=== PATIENT | male | born 1960 | race Caucasian/White ===

== ENCOUNTER 2017-03-15 12:38 | Emergency (ER) | payer OTHER ==
[2017-03-15 12:44] VITALS: BP 128/87; PULSE 82; TEMP 98.1; BMI 29.1
--- NOTE | 2017-03-15 13:34 | PDOC ---
History of Present Illness - General Chief Complaint: Pain Stated Complaint: KNEE PAIN Time Seen by Provider: 03/15/17 13:12 History Source: Patient Exam Limitations: No Limitations - History of Present Illness Initial Comments: 03/15/17 13:28 While at work 6 weeks ago, patient states he stumbled and fell backwards twisting his left knee. States did not report the incident of the time and was hoping for resolved however patient has continued tenderness along the medial aspect of his left knee and was concerned about fracture. Patient denies numbness or tingling, no other injury. Has taken no medication for Relief of pain, and no treatments. 03/15/17 13:46 Occurred: reports: other Severity: reports: mild Pain Location: reports: lower extremity (left knee ) Modifying Factors: improves with: None Loss of Consciousness: no loss of consciousness Associated Symptoms (Fall): denies symptoms Past History - Travel Traveled outside of the country in the last 30 days: No Close contact w/someone who was outside of country & ill: No - Past Medical History Allergies/Adverse Reactions: Allergies Allergy/AdvReac Type Severity Reaction Status Date / Time shellfish derived Allergy Swelling Verified 03/15/17 12:44 Home Medications: Ambulatory Orders Lisinopril/Hydrochlorothiazide [Lisinopril-Hctz 10-12.5 mg Tab] 1 each PO DAILY 03/15/17 Naproxen [Naprosyn -] 500 mg PO BID #14 tablet 03/15/17 HTN: Yes - Psycho/Social/Smoking Cessation Hx Anxiety: No Suicidal Ideation: No Smoking History: Current some day smoker Have you smoked in the past 12 months: Yes Number of Cigarettes Smoked Daily: 4 Information on smoking cessation initiated: No Hx Alcohol Use: Yes (SOCIAL) Drug/Substance Use Hx: No Substance Use Type: None Trauma Specific PMHX - Complaint Specific PMHX Back Injury: No Neck Injury: No Review of Systems - Review of Systems Able to Perform ROS?: Yes Is the patient limited [place] Citizen proficient: Yes Constitutional: Yes: See HPI. No: Symptoms Reported, Malaise HEENTM: Yes: See HPI. No: Symptoms Reported Respiratory: No: Symptoms reported Musculoskeletal: Yes: Symptoms Reported, See HPI, Joint Pain (to MCL). No: Joint Swelling All Other Systems: Reviewed and Negative *Physical Exam - Vital Signs Last Vital Signs Temp Pulse Resp BP Pulse Ox 98.1 F 82 20 128/87 98 03/15/17 12:41 03/15/17 12:41 03/15/17 12:41 03/15/17 12:41 03/15/17 12:41 - Physical Exam General Appearance: Yes: Nourished, Appropriately Dressed, Apparent Distress HEENT: positive: LILI, Normal ENT Inspection, TMs Normal Musculoskeletal: positive: Normal Inspection, Other (tenderness reproduced along the left superior aspect of medial collateral LIGAMENT. Knee is stable, negative anterior drawer test, no lateral collateral ligament, no posterior fossa tenderness , is ambulatory without unsteadiness or limp. 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 We'll treat with NSAIDs, immobilizer, and follow up with OrthO *DC/Admit/Observation/Transfer Diagnosis at time of Disposition: Knee MCL sprain Qualifiers: Encounter type: initial encounter Laterality: left Qualified Code(s): S83.412A - Sprain of medial collateral ligament of left knee, initial encounter - Discharge Dispostion Disposition: HOME Condition at time of disposition: Stable Admit: No - Referrals Referrals: Basliia Nava MD [Primary Care Provider] - Claus Preston MD [Staff Physician] - - Patient Instructions Printed Discharge Instructions: DI for Knee Sprain Additional Instructions: Rest, ice to area on and off for 15 minutes 4-6 times a day Avoid heavy lifting or exercise until pain and swelling is resolved or until further directed Keep area highly elevated to reduce swelling Use splints/Santino wrap as directed Followup with orthopedist in one to 2 days if not improving, if significantly improved may wait one week for followup with orthopedist May use Naprosyn 500mg every8 hours as needed for pain - Post Discharge Activity Work/School Note: Back to Work
== END 2017-03-15 13:49 | disposition home or self-care (01) ==
LOC: JERFT 12:38
PROC: 2W3RX1Z Immobilization of Left Lower Leg using Splint (ICD-10-PCS; principal; 2017-03-15)
DX: S83.412A Sprain of medial collateral ligament of left knee, initial encounter (principal); W19.XXXA Unspecified fall, initial encounter; Y93.89 Activity, other specified; Y92.9 Unspecified place or not applicable; F17.210 Nicotine dependence, cigarettes, uncomplicated
CPT/HCPCS: 99281-25

== ENCOUNTER 2017-04-23 08:37 | Emergency (ER) | payer OTHER ==
[2017-04-23 08:57] VITALS: TEMP 98.1; BMI 29.2
--- NOTE | 2017-04-23 09:12 | PDOC ---
History of Present Illness - General Chief Complaint: Chest Pain Stated Complaint: CHEST PAIN Time Seen by Provider: 04/23/17 09:11 Past History - Past Medical History Allergies/Adverse Reactions: Allergies Allergy/AdvReac Type Severity Reaction Status Date / Time shellfish derived Allergy Swelling Verified 04/23/17 08:54 Home Medications: Ambulatory Orders Lisinopril/Hydrochlorothiazide [Lisinopril-Hctz 10-12.5 mg Tab] 1 each PO DAILY 03/15/17 Naproxen [Naprosyn -] 500 mg PO BID #14 tablet 03/15/17 HTN: Yes - Psycho/Social/Smoking Cessation Hx Anxiety: No Suicidal Ideation: No Smoking History: Current some day smoker Have you smoked in the past 12 months: Yes Number of Cigarettes Smoked Daily: 4 Information on smoking cessation initiated: No Hx Alcohol Use: Yes (SOCIAL) Drug/Substance Use Hx: No Substance Use Type: None *Physical Exam - Vital Signs Last Vital Signs Temp Pulse Resp BP Pulse Ox 98.1 F 75 19 128/80 97 04/23/17 08:54 04/23/17 08:54 04/23/17 08:54 04/23/17 08:54 04/23/17 08:54 *DC/Admit/Observation/Transfer - Attestations Physician Attestion: 04/23/17 09:12 I, Dr. Rolly Romo, attest that this document has been prepared under my direction and personally reviewed by me in its entirety. I further attest, that it accurately reflects all work, treatment, procedures and medical decision -making performed by me.
--- NOTE | 2017-04-23 09:18 | PDOC ---
Attending Attestation - Resident Resident Name: Jessica Madera - ED Attending Attestation I have performed the following: I have examined & evaluated the patient, The case was reviewed & discussed with the resident, I agree w/resident's findings & plan, Exceptions are as noted - HPI HPI: 04/23/17 09:17 57 yo L sided anterior chest pain just this morning, intermittently, gone now...... 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 - Physicial Exam PE: 04/23/17 09:18 VSS, NAD, PAIN FREE - Medical Decision Making 04/23/17 09:[address] Madera's assessment and plan
[2017-04-23 09:38] LABS: BASOPHIL 0.8 % (0-2.0); MCH 28.8 pg (25.7-33.7); MCHC 31.8 g/dl (32.0-35.9); MEAN CELL VOLUME 90.5 fl (80-96); MEAN PLT VOLUME 9.3 fl (7.5-11.1); NEUTROPHILS 66.1 % (42.8-82.8); PLATELET COUNT 228 K/MM3 (134-434); RDW 15.9 % (11.9-15.9); WHITE BLOOD COUNT 8.6 K/mm3 (4.0-10.0)
--- NOTE | 2017-04-23 09:56 | PDOC ---
History of Present Illness - General Chief Complaint: Chest Pain Stated Complaint: CHEST PAIN Time Seen by Provider: 04/23/17 09:11 History Source: Patient Exam Limitations: No Limitations - History of Present Illness Initial Comments: 57yo M with PMH of HTN presents c/o left sternal chest pain since he woke up this morning. He has never had these symptoms before. Pt reports he played basketball and volleyball with co-workers on Monday and went to [employer] yesterday, which is more physical activity than is normal for him. Pain is localized and pt points with one finger to upper left sterum where pain is. Pain is described as intermittent, non-radiating, rated 3/10 at its peak, though currently resolved. Pt took 2 Flory Aspirins and some Tums which temporarily relieved the pain. Pt denies fever, SOB, diaphoresis, palpitations , tachycardia. 04/23/17 09:48 Timing/Duration: 1-3 hours Severity: mild Past History - Past Medical History Allergies/Adverse Reactions: Allergies Allergy/AdvReac Type Severity Reaction Status Date / Time shellfish derived Allergy Swelling Verified 04/23/17 08:54 Home Medications: Ambulatory Orders Lisinopril/Hydrochlorothiazide [Lisinopril-Hctz 10-12.5 mg Tab] 1 each PO DAILY 03/15/17 HTN: Yes - Surgical History Orthopedic Surgery: Yes (Left shoulder surgery 3 yrs ago) - Family Disease History Family Disease History: Respiratory: Sister (asthma) - Psycho/Social/Smoking Cessation Hx Anxiety: No Suicidal Ideation: No Smoking History: Current some day smoker Have you smoked in the past 12 months: Yes Number of Cigarettes Smoked Daily: 0 (3 cigarettes per week) Information on smoking cessation initiated: No Hx Alcohol Use: Yes (SOCIAL) Drug/Substance Use Hx: No Substance Use Type: None Review of Systems - Review of Systems Able to Perform ROS?: Yes Is the patient limited [place] proficient: No Constitutional: No: Chills, Diaphoresis, Fever HEENTM: No: Eye Pain, Recent change in vision, Ear Pain, Nose Pain, Nose Congestion, Throat Pain Respiratory: No: Cough, Shortness of Breath, Stridor, Wheezing, Hemoptysis Cardiac (ROS): Yes: Chest Pain. No: Irregular Heart Rate, Lightheadedness, Palpitations, Chest Tightness ABD/GI: No: Abdominal Distended, Constipated, Diarrhea, Nausea, Rectal Bleeding , Vomiting : No: Dysuria, Hematuria Musculoskeletal: No: Joint Pain, Muscle Pain Integumentary: No: Bruising, Dryness, Lesions Neurological: No: Headache, Numbness, Weakness *Physical Exam - Vital Signs Last Vital Signs Temp Pulse Resp BP Pulse Ox 98.1 F 75 19 128/80 97 04/23/17 08:54 04/23/17 08:54 04/23/17 08:54 04/23/17 08:54 04/23/17 08:54 - Physical Exam General Appearance: Yes: Nourished, Appropriately Dressed. No: Apparent Distress HEENT: positive: EOMI, Normal Voice, Other (moist mucous membranes). negative: Pale Conjunctivae, Scleral Icterus (R), Scleral Icterus (L) Neck: positive: Trachea midline, Supple Respiratory/Chest: positive: Lungs Clear, Normal Breath Sounds. negative: Respiratory Distress, Accessory Muscle Use Cardiovascular: positive: Regular Rhythm, Regular Rate, S1, S2. negative: JVD, Murmur Gastrointestinal/Abdominal: positive: Soft. negative: Distended, Guarding, Rebound, Tenderness Extremity: negative: Swelling, Calf Tenderness, Erythema Integumentary: positive: Dry, Warm Neurologic: positive: Fully Oriented, Alert, Normal Mood/Affect Heart Score/ECG Review #1 General ECG Interpretation: Sinus Rhythm, Normal Rate, Normal Intervals, No acute ischemic changes ED Treatment Course - LABORATORY CBC & Chemistry Diagram: 04/23/17 09:30 04/23/17 09:16 - ADDITIONAL ORDERS Additional order review: 04/23/17 09:30 RBC 4.51 MCV 90.5 MCHC 31.8 L RDW 15.9 MPV 9.3 Neutrophils % 66.1 Lymphocytes % 21.0 Monocytes % 6.1 Eosinophils % 6.0 H Basophils % 0.8 Medical Decision Making - Medical Decision Making 57yo M with PMH of HTN presenting c/o left upper sternal chest pain. Pt reports increased physical activity over the last couple days (basketball, volleyball, gym). Ddx includes muscloskeletal pain vs ACS. CBC with diff, CMP troponin -> wnl Cr kinase -> 1276 -> pt given water to drink, repeat ordered EKG -> reveals NSR CXR -> no acute pathology 04/23/17 10:06 04/23/17 13:51 repeat Cr kinase 1143 -> trending down. Pt can go home. Will be advised to drink lots of water and avoid working out for a few days. *DC/Admit/Observation/Transfer Diagnosis at time of Disposition: Chest pain in adult - Discharge Dispostion Disposition: HOME Condition at time of disposition: Improved Admit: No - Referrals Referrals: Basilia Nava MD [Primary Care Provider] - - Patient Instructions Printed Discharge Instructions: DI for Atypical Chest Pain Additional Instructions: Please come back to hospital if symptoms of chest pain persist, or if symptoms worsen (sweating, fast heart rate, increased chest pain). Please follow up with Primary Care Doctor.
[2017-04-23 10:00] LABS: ANION GAP 8 (8-16); BILIRUBIN,TOTAL 0.9 mg/dL (0.2-1.0); CALCIUM 9.7 mg/dL (8.5-10.1); CO2 29 mmol/L (21-32); GLUCOSE,RANDOM 93 mg/dL (74-106); SGOT/AST 27 U/L (15-37); SGPT/ALT 23 U/L (12-78); TOT PROT 7.6 g/dl (6.4-8.2)
[2017-04-23 10:12] LABS: ALK PHOS 74 U/L (45-117); TROPONIN I < 0.02 ng/ml (0.00-0.05)
[2017-04-23 10:22] LABS: CPK 1276 IU/L (39-308)
[2017-04-23 13:05] VITALS: BP 137/78; PULSE 72
--- NOTE | 2017-04-23 13:07 | EKG ---
Test Reason : Blood Pressure : / mmHG Vent. Rate : 071 BPM Atrial Rate : 071 BPM P-R Int : 132 ms QRS Dur : 086 ms QT Int : 398 ms P-R-T Axes : 062 032 045 degrees QTc Int : 432 ms NORMAL SINUS RHYTHM NORMAL ECG NO PREVIOUS ECGS AVAILABLE REPEAT EKG IF CLINICALLY INDICATED Confirmed by ROSALES SORIANO MD ([id number]) on 04/23/2017 1:07:09 PM Referred By: Confirmed By:ROSALES SORIANO MD
[2017-04-23 13:46] LABS: CPK 1143 IU/L (39-308); TROPONIN I < 0.02 ng/ml (0.00-0.05)
== END 2017-04-23 14:28 | disposition home or self-care (01) ==
LOC: JER 08:37
DX: R07.89 Other chest pain (principal); I10 Essential (primary) hypertension; Z72.0 Tobacco use
CPT/HCPCS: 36415; 71010-TC; 80053; 82553; 84484; 85025; 93005; 93010; 99283-25

== ENCOUNTER 2018-12-28 17:23 | Emergency (ER) | payer OTHER ==
[2018-12-28] MEDS ORDERED: IBUPROFEN 400 MG TABLET (FP) PO ONE ×2 (17:27→17:50)
--- NOTE | 2018-12-28 17:27 | PDOC ---
Rapid Medical Evaluation Medical Evaluation: Allergies Allergy/AdvReac Type Severity Reaction Status Date / Time shellfish derived Allergy Swelling Verified 04/23/17 08:54 I have performed a brief in-person evaluation of this patient. The patient presents with a chief complaint of: Metal sign fell onto R hand yesterday Pertinent physical exam findings: +swelling of R hand, mainly along head of 1st and 2nd metacarpals I have ordered the following: R hand xray The patient will proceed to the ED for further evaluation. 12/28/18 17:24
[2018-12-28 17:28] VITALS: BP 160/98; PULSE 87; TEMP 97.9; BMI 30.9
--- NOTE | 2018-12-28 18:07 | PDOC ---
History of Present Illness - General Chief Complaint: Injury Stated Complaint: SWOLLEN HAND Time Seen by Provider: 12/28/18 17:24 History Source: Patient Exam Limitations: No Limitations Past History - Travel Traveled outside of the country in the last 30 days: No Close contact w/someone who was outside of country & ill: No - Past Medical History Allergies/Adverse Reactions: Allergies Allergy/AdvReac Type Severity Reaction Status Date / Time shellfish derived Allergy Swelling Verified 12/28/18 17:27 Home Medications: Ambulatory Orders Lisinopril/Hydrochlorothiazide [Lisinopril-Hctz 10-12.5 mg Tab] 1 each PO DAILY 03/15/17 Ibuprofen 600 mg PO Q6H #30 tablet 12/28/18 COPD: No HTN: Yes - Surgical History Orthopedic Surgery: Yes (Left shoulder surgery 3 yrs ago) - Family Disease History Family Disease History: Respiratory: Sister (asthma) - Suicide/Smoking/Psychosocial Hx Smoking History: Never smoked Have you smoked in the past 12 months: Yes Number of Cigarettes Smoked Daily: 0 (3 cigarettes per week) Information on smoking cessation initiated: No Hx Alcohol Use: No Drug/Substance Use Hx: No Substance Use Type: None Review of Systems - Review of Systems Able to Perform ROS?: Yes Comments:: 12/28/18 18:02 CONSTITUTIONAL: Absent: fever, chills, diaphoresis, generalized weakness, malaise, loss of appetite MUSCULOSKELETAL: Present: R hand pain Absent: myalgia, arthralgia, joint swelling SKIN: Absent: rash, itching, pallor NEUROLOGIC: Absent: headache, focal weakness or paresthesias, dizziness, unsteady gait, seizure, mental status changes, bladder or bowel incontinence PSYCHIATRIC: Absent: anxiety, depression, suicidal or homicidal ideation, hallucinations. Is the patient limited [place] proficient: No *Physical Exam - Vital Signs Last Vital Signs Temp Pulse Resp BP Pulse Ox 97.9 F 87 19 160/98 98 12/28/18 17:25 12/28/18 17:25 12/28/18 17:25 12/28/18 17:25 12/28/18 17:25 - Physical Exam Comments: 12/28/18 18:04 GENERAL: The patient is awake, alert, and fully oriented, in no acute distress. HEAD: Normal with no signs of trauma. EYES: Pupils equal, round and reactive to light, extraocular movements intact, sclera anicteric, conjunctiva clear. EXTREMITIES: TTP over the R second and third metacarpals. Pt able to make a fist. Strength 5/5 in b/l hands. PMS intact. Minimal swelling noted over the area, Normal range of motion, no edema. NEUROLOGICAL: Normal speech, normal gait PSYCH: Normal mood, normal affect. SKIN: Warm, Dry, normal turgor, no rashes or lesions noted. ED Treatment Course - Medications Given in the ED: ED Medications Discontinued Medications Generic Name Dose Route Start Last Admin Trade Name Jacque PRN Reason Stop Dose Admin Ibuprofen 800 mg 12/28/18 17:27 12/28/18 17:57 Motrin - PO 12/28/18 17:28 800 mg ONCE ONE Administration Medical Decision Making - Medical Decision Making 12/28/18 18:05 The patient is a 58-year-old male with past medical history of hypertension, who presents to the ER today with right hand pain. 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 He states he took Motrin and went home. States he noticed the hand was swollen so he came in for evaluation. He states that it hurts to make a fist. Denies fevers, chills, numbness and tingling and weakness to the affected extremity. Patient is right- hand dominant. A/P: Hand pain On exam patient with tenderness to palpation over the right second and third metacarpals with mild associated swelling X-ray obtained from E is negative for fractures on wet read. Patient with multiple degenerative changes noted at the MCP joint. Old fifth metacarpal fracture Will treat with Santino wrap, Motrin and ice Discharge home with hand follow-up I discussed the physical exam findings, ancillary test results and final diagnoses with the patient. I answered all of the patient's questions. The patient was satisfied with the care received and felt comfortable with the discharge plan and treatment plan. The Patient agrees to follow up with the primary care physician/specialist within 24-72 hours. Return precautions were given. *DC/Admit/Observation/Transfer Diagnosis at time of Disposition: Hand pain, right - Discharge Dispostion Disposition: HOME Condition at time of disposition: Stable Decision to Admit order: No - Referrals Referrals: Basilia Nava MD [Primary Care Provider] - Kar Madrid MD [Staff Physician] - - Patient Instructions Printed Discharge Instructions: DI for Hand Pain Additional Instructions: You were evaluated for your hand pain today Your x-ray does not show any broken bones You may take Motrin 600mg every 6 hours as needed for pain and swelling Wear the SANTINO wrap on the hand for comfort Keep the hand elevated at rest Apply ice to the area for 20 minute intervals Follow up with the hand doctor in 48-72 hours if your symptoms are not improving Return to the ER for any new or worsening symptoms - Post Discharge Activity Forms/Work/School Notes: Back to Work
== END 2018-12-28 18:28 | disposition home or self-care (01) ==
LOC: JERFT 17:23
DX: M79.641 Pain in right hand (principal); W20.8XXA Other cause of strike by thrown, projected or falling object, initial encounter; Y93.89 Activity, other specified; Y92.69 Other specified industrial and construction area as the place of occurrence of the external cause; Y99.0 Civilian activity done for income or pay
CPT/HCPCS: 73130-TC-RT-FY; 99281-25

== ENCOUNTER 2020-02-23 13:22 | Emergency (ER) | payer OTHER ==
[2020-02-23 13:41] VITALS: BMI 28.3
--- NOTE | 2020-02-23 13:43 | PDOC ---
Rapid Medical Evaluation Chief Complaint: Injury Time Seen by Provider: 02/23/20 13:38 Medical Evaluation: Allergies Allergy/AdvReac Type Severity Reaction Status Date / Time shellfish derived Allergy Swelling Verified 12/28/18 17:27 02/23/20 13:39 I have performed a brief in-person evaluation of this patient. The patient presents with a chief complaint of: redness in right conjunctiva s/p police accidentally broke down his door and tackled him. pt report police was looking for someone else but went to the wrong apartment and he was sleeping when they broke down his door and tackled him. pt was found to have left 9th rib fx on x-ray from [facility] and florecein stain was done in urgent care which was normal but advised to come to ED for eval by limited radiology technician. pt does no recall trauma to eye and does not know how he got the redness in right eye Pertinent physical exam findings:. right subconjunctiva hemorrhage. EOMI. RICKIE B/L I have ordered the following: deferred The patient will proceed to the ED for further evaluation. Discharge Disposition - Diagnosis Subconjunctival hemorrhage of right eye - Discharge Dispostion Condition at time of disposition: Stable - Referrals - Patient Instructions - Post Discharge Activity
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
[2020-02-23 15:50] VITALS: BP 156/92; PULSE 77; TEMP 98.2
== END 2020-02-23 16:06 | disposition home or self-care (01) ==
LOC: JERFT 13:22
DX: H11.31 Conjunctival hemorrhage, right eye (principal)
CPT/HCPCS: 70450-TC; 72125-TC; 99284-25

== ENCOUNTER 2021-02-08 09:58 | Emergency (ER) | payer OTHER ==
[2021-02-08 10:14] VITALS: PULSE 86; TEMP 97.9; BMI 28.3
[2021-02-08 11:20] VITALS: BP 162/87
[2021-02-08] MEDS ORDERED: ACETAMINOPHEN 500 MG TABLET (FP) PO ONE (11:28)
[2021-02-08] MEDS ORDERED: ACETAMINOPHEN 325 MG TABLET (FP) ONE (11:29)
== END 2021-02-08 11:48 | disposition home or self-care (01) ==
LOC: JER 09:58
DX: I10 Essential (primary) hypertension (principal)
CPT/HCPCS: 99283-25

== ENCOUNTER 2023-10-11 16:42 | Emergency (ER) | payer OTHER ==
[2023-10-11 17:02] VITALS: PULSE 68; RESP 18; TEMP 97.9; BMI 30.7
[2023-10-11 17:03] VITALS: BP 166/97
[2023-10-11] MEDS ORDERED: ACETAMINOPHEN 500 MG TABLET (FP) ONE (18:04)
[2023-10-11] MEDS ORDERED: KETOROLAC TROMETHAMINE 30 MG/1 ML VIAL ONE (18:04)
[2023-10-11] MEDS: KETOROLAC TROMETHAMINE 30 MG/1 ML VIAL IM ONE (18:08)
[2023-10-11] MEDS: ACETAMINOPHEN 500 MG TABLET (FP) PO ONE (18:08)
[2023-10-11] MEDS: LIDOCAINE 4% PATCH TP ONE (18:08)
[2023-10-11] MEDS ORDERED: LIDOCAINE PATCH REMOVAL MC SCH (22:00)
== END 2023-10-11 20:21 | disposition home or self-care (01) ==
LOC: JERFT 16:42
PROC: 3E0233Z Introduction of Anti-inflammatory into Muscle, Percutaneous Approach (ICD-10-PCS; principal; 2023-10-11)
DX: M25.552 Pain in left hip (principal); M54.50 Low back pain, unspecified
CPT/HCPCS: 72100-TC-FY; 73502-TC-LT-FY; 99284-25